=== PATIENT | male | born 1970 | race Caucasian/White ===

== ENCOUNTER 2018-03-06 05:06 | Emergency (ER) | payer BC ==
[2018-03-06 05:49] VITALS: PULSE 68; TEMP 97.3; BMI 24.9
--- NOTE | 2018-03-06 06:14 | PDOC ---
History of Present Illness - General History Source: Patient Exam Limitations: No Limitations - History of Present Illness Initial Comments: 03/06/18 06:38 The patient is a 47 year old male with a past medical history of GERD who presents to the ED s/p syncopal episode earlier today. The patient reports he was using the bathroom when he had a nose bleed. Patient states he became diaphoretic, nauseous, and lightheaded after seeing the blood. He states he had a glass of water and was walking back to his room when he had a sudden onset of generalized weakness and had a syncopal episode. He states he hit the back of his head against the wall when he had the syncopal episode. Patient also reports nasal congestion, rhinorrhea and a hoarse voice since Tuesday. Denies fever or chills. Denies chest pain or shortness of breath. Denies nausea , vomiting, or diarrhea. Denies any other symptoms. Family hx: Patients father from [place] in his 50s and brother from [place] in his 30s. <London Jung - Last Filed: 03/06/18 06:38> <Kathie Ryan - Last Filed: 03/06/18 07:03> - General Chief Complaint: Syncope/Near Syncope Stated Complaint: WEAKNESS/SYNCOPE Time Seen by Provider: 03/06/18 05:36 Past History <London Jung - Last Filed: 03/06/18 06:38> - Past Medical History COPD: No - Suicide/Smoking/Psychosocial Hx Smoking History: Never smoked Have you smoked in the past 12 months: No Information on smoking cessation initiated: No Hx Alcohol Use: No Drug/Substance Use Hx: No Substance Use Type: None <Kathie Ryan - Last Filed: 03/06/18 07:03> - Past Medical History Allergies/Adverse Reactions: Allergies Allergy/AdvReac Type Severity Reaction Status Date / Time No Known Allergies Allergy Verified 03/06/18 05:49 Home Medications: Ambulatory Orders Albuterol Sulfate Inhaler - [Ventolin HFA Inhaler -] 2 inh IH Q6H #1 inh Loratadine [Claritin] 10 mg PO DAILY #30 tablet 09/14/16 Review of Systems - Review of Systems Able to Perform ROS?: Yes Comments:: 03/06/18 06:38 CONSTITUTIONAL: + generalized weakness, diaphoresis Absent: fever, chills, malaise, loss of appetite HEENT: + nasal congestion, nosebleed, hoarse voice Absent: rhinorrhea, throat pain, throat swelling, difficulty swallowing, mouth swelling, ear pain, eye pain, visual Changes CARDIOVASCULAR: + syncope Absent: chest pain, palpitations, irregular heart rate, lightheadedness, peripheral edema RESPIRATORY: Absent: cough, shortness of breath, dyspnea with exertion, orthopnea, wheezing, stridor, hemoptysis GASTROINTESTINAL: + nausea Absent: abdominal pain, abdominal distension, vomiting, diarrhea, constipation, melena, hematochezia GENITOURINARY: Absent: dysuria, frequency, urgency, hesitancy, hematuria, flank pain, genital pain MUSCULOSKELETAL: Absent: myalgia, arthralgia, joint swelling SKIN: Absent: rash, itching, pallor HEMATOLOGIC/IMMUNOLOGIC: Absent: easy bleeding, easy bruising, lymphadenopathy, frequent infections ENDOCRINE: Absent: unexplained weight gain, unexplained weight loss, heat intolerance, cold intolerance NEUROLOGIC: + lightheadedness Absent: headache, focal weakness or paresthesias, unsteady gait, seizure, mental status changes, bladder or bowel incontinence PSYCHIATRIC: Absent: anxiety, depression, suicidal or homicidal ideation, hallucinations. All Other Systems: Reviewed and Negative <London Jung - Last Filed: 03/06/18 06:38> *Physical Exam - Vital Signs Last Vital Signs Temp Pulse Resp BP Pulse Ox 97.3 F L 68 18 113/62 99 03/06/18 05:45 03/06/18 05:45 03/06/18 05:45 03/06/18 05:45 03/06/18 05:45 - Physical Exam Comments: 03/06/18 06:38 GENERAL: Well developed, well nourished. Awake and alert. No acute distress. HEENT: Normocephalic, atraumatic. PERRLA, EOMI. No conjunctival pallor. Sclera are non- icteric. Moist mucous membranes. Oropharynx is clear. NECK: Supple. Full ROM. No JVD. Carotid pulses 2+ and symmetric, without bruits. No thyromegaly. No lymphadenopathy. CARDIOVASCULAR: Regular rate and rhythm. No murmurs, rubs, or gallops. Distal pulses are 2+ and symmetric. PULMONARY: No evidence of respiratory distress. Lungs clear to auscultation bilaterally. No wheezing, rales or rhonchi. ABDOMINAL: Soft. Non-tender. Non-distended. No rebound or guarding. No organomegaly. Normoactive bowel sounds. MUSCULOSKELETAL Normal range of motion at all joints. No bony deformities or tenderness. No CVA tenderness. EXTREMITIES: No cyanosis. No clubbing. No edema. No calf tenderness. SKIN: Warm and dry. Normal capillary refill. No rashes. No jaundice. NEUROLOGICAL: Alert, awake, appropriate. Cranial nerves 2-12 intact. No deficits to light touch and temperature in face, upper extremities and lower extremities. No motor deficits in the in face, upper extremities and lower extremities. Normoreflexic in the upper and lower extremities. Normal speech. Toes are down- going bilaterally. Gait is normal without ataxia. PSYCHIATRIC: Cooperative. Good eye contact. Appropriate mood and affect. <London Jung - Last Filed: 03/06/18 06:38> - Vital Signs Last Vital Signs Temp Pulse Resp BP Pulse Ox 97.3 F L 68 18 113/62 99 03/06/18 05:45 03/06/18 05:45 03/06/18 05:45 03/06/18 05:45 03/06/18 05:45 <Kathie Ryan - Last Filed: 03/06/18 07:03> Heart Score/ECG Review #1 03/06/18 06:38 Vent rate 76 bpm PA interval 180 ms QRS duration 110 ms Normal sinus rhythm <London Jung - Last Filed: 03/06/18 06:38> ED Treatment Course - LABORATORY CBC & Chemistry Diagram: 03/06/18 06:45 03/06/18 06:45 <Kathie Ryan - Last Filed: 03/06/18 07:03> Medical Decision Making - Medical Decision Making 03/06/18 06:59 Pt had a syncopal episode at home. He states that he has not been feeling well ; he has had nasal sinus congestion. He states that he was feeling dizzy and that he blew is nose and saw blood and felt weak and diaphoretic (vasovagal) Pt then went and drank water. States that he then felt unwell told his daughter to call EMS and he had a syncopal episode and slumped in his hallway. EMS started NSS, and pt is improved. We will check labs, CT head cspine and sinuses. Pt is pale and we sent a stool for guaiac. He denies bloody or black stools; HE has a hx of GERD and gastritis and he lost 10 lbs in the past yr and half. Pt states that he feels fine at this time; only complaint is nausea. Entire workup is pending. He will be signed out to the AM doc. <Kathie Ryan - Last Filed: 03/06/18 07:03> *DC/Admit/Observation/Transfer - Attestations Scribe Attestion: 03/06/18 06:38 Documentation prepared by London Jung, acting as medical examiner for Kathie Ryan MD <London Jung - Last Filed: 03/06/18 06:38> <Kathie Ryan - Last Filed: 03/06/18 07:03> - Referrals Referrals: Daniel Holt [Primary Care Provider] - - Patient Instructions - Post Discharge Activity
[2018-03-06] MEDS ORDERED: SODIUM CHLORIDE 0.9% 500 ML INFUS.BAG IV ONE (06:15)
[2018-03-06] MEDS ORDERED: ONDANSETRON 4 MG/2 ML VIAL IVPB ONE (06:28)
[2018-03-06 06:55] LABS: BASO % 0.1 % (0-2.0); EOS % 0.6 % (0-4.5); HEMATOCRIT 39.7 % (35.4-49); HEMOGLOBIN 13.8 GM/dL (11.7-16.9); LYMPH % 13.2 % (8-40); MCH 31.9 pg (25.7-33.7); MCHC 34.9 g/dl (32.0-35.9); MEAN CELL VOLUME 91.6 fl (80-96); MEAN PLT VOLUME 7.2 fl (7.5-11.1); MONO % 9.7 % (3.8-10.2); NEUT % 76.4 % (42.8-82.8); PLATELET COUNT 211 K/MM3 (134-434); RBC 4.33 M/mm3 (4.00-5.60); RDW 13.1 % (11.9-15.9); WHITE BLOOD COUNT 8.8 K/mm3 (4.0-10.0)
[2018-03-06 07:20] LABS: INR 0.99 (0.82-1.09); PROTHROMBIN TIME (PATIENT) 11.2 SEC (9.98-11.88)
[2018-03-06 07:25] LABS: ALBUMIN 3.7 g/dl (3.4-5.0); ANION GAP 9 (8-16); BILIRUBIN,TOTAL 0.4 mg/dL (0.2-1.0); BLOOD UREA NITROGEN 18 mg/dL (7-18); CALCIUM 8.1 mg/dL (8.5-10.1); CHLORIDE 107 mmol/L (98-107); CO2 25 mmol/L (21-32); CREATININE 0.7 mg/dL (0.7-1.3); GLUCOSE,RANDOM 109 mg/dL (74-106); POTASSIUM 3.8 mmol/L (3.5-5.1); SGOT/AST 17 U/L (15-37); SGPT/ALT 21 U/L (12-78); SODIUM 141 mmol/L (136-145)
[2018-03-06 07:28] LABS: ALK PHOS 66 U/L (45-117); TOT PROT 6.5 g/dl (6.4-8.2)
[2018-03-06] MEDS ORDERED: ONDANSETRON 4 MG/2 ML VIAL ONE (07:47)
[2018-03-06] MEDS ORDERED: ONDANSETRON 4 MG/2 ML VIAL IVPUSH ONE (07:48)
[2018-03-06 08:20] VITALS: BP 116/84
--- NOTE | 2018-03-06 08:23 | PDOC ---
*Physical Exam - Vital Signs Last Vital Signs Temp Pulse Resp BP Pulse Ox 97.3 F L 68 18 113/62 99 03/06/18 05:45 03/06/18 05:45 03/06/18 05:45 03/06/18 05:45 03/06/18 05:45 - Physical Exam Respiratory/Chest: positive: Lungs Clear Cardiovascular: positive: Regular Rhythm Gastrointestinal/Abdominal: negative: Tender ED Treatment Course - LABORATORY CBC & Chemistry Diagram: 03/06/18 06:45 03/06/18 06:45 - ADDITIONAL ORDERS Additional order review: Laboratory Results 03/06/18 03/06/18 03/06/18 06:45 06:45 06:45 PT with INR 11.20 INR 0.99 PTT (Actin FS) Sodium 141 Potassium 3.8 Chloride 107 Carbon Dioxide 25 Anion Gap 9 BUN 18 Creatinine 0.7 Creat Clearance w eGFR > 60 Random Glucose 109 H Calcium 8.1 L Total Bilirubin 0.4 AST 17 ALT 21 Alkaline Phosphatase 66 Creatine Kinase 79 Troponin I < 0.02 Total Protein 6.5 Albumin 3.7 Stool Occult Blood Blood Type O POSITIVE Antibody Screen Negative 03/06/18 03/06/18 06:45 06:30 PT with INR INR PTT (Actin FS) 31.1 Sodium Potassium Chloride Carbon Dioxide Anion Gap BUN Creatinine Creat Clearance w eGFR Random Glucose Calcium Total Bilirubin AST ALT Alkaline Phosphatase Creatine Kinase Troponin I Total Protein Albumin Stool Occult Blood Negative Blood Type Antibody Screen 03/06/18 06:45 RBC 4.33 MCV 91.6 MCHC 34.9 RDW 13.1 MPV 7.2 L Neutrophils % 76.4 Lymphocytes % 13.2 Monocytes % 9.7 Eosinophils % 0.6 Basophils % 0.1 - Medications Given in the ED: ED Medications Discontinued Medications Generic Name Dose Route Start Last Admin Trade Name Freq PRN Reason Stop Dose Admin Ondansetron HCl 4 mg 03/06/18 06:28 03/06/18 07:49 Zofran Injection IVPB 03/06/18 06:29 4 mg ONCE ONE Administration Sodium Chloride 1,000 ml 03/06/18 06:15 03/06/18 06:41 Normal Saline - IV 03/06/18 06:16 1,000 ml ONCE ONE Administration Medical Decision Making - Medical Decision Making 03/06/18 08:20 47 years old no significant past medical history presents to the ED with syncopal episodes in the context of recent GI illness. Patient with nausea feels like he may have eaten something which was bad. Nonischemic EKG troponin negative labs otherwise within normal limits Status post IV fluids and Zofran patient feels much better now with stable vital signs ambulate comfortably around the emergency department no longer lightheaded. We'll discharge with prescription for Zofran patient will follow- up with his primary care provider this week he'll return to the emergency department for any severe worsening symptoms or any concerns Findings, need for follow-up, strict return instructions discussed with patient. *DC/Admit/Observation/Transfer Diagnosis at time of Disposition: Syncope Qualifiers: Syncope type: vasovagal syncope Qualified Code(s): R55 - Syncope and collapse - Discharge Dispostion Admit: No - Referrals Referrals: Daniel Holt [Primary Care Provider] - - Patient Instructions Printed Discharge Instructions: DI for Syncope in Adults (Fainting) Additional Instructions: Zofran as prescribed. Drink plenty of fluids. Rest. Return to ED for any chest pain recurrence of syncope or for any concerns. Follow-up with your primary care provider in 1-2 days this week. - Post Discharge Activity Forms/Work/School Notes: Back to Work
--- NOTE | 2018-03-06 23:49 | EKG ---
Test Reason : Blood Pressure : / mmHG Vent. Rate : 076 BPM Atrial Rate : 076 BPM P-R Int : 180 ms QRS Dur : 110 ms QT Int : 400 ms P-R-T Axes : 063 060 036 degrees QTc Int : 450 ms NORMAL SINUS RHYTHM NORMAL ECG NO PREVIOUS ECGS AVAILABLE Confirmed by NAVNEET YORK MD ([id number]) on 03/06/2018 11:48:47 PM Referred By: Confirmed By:NAVNEET YORK MD
== END 2018-03-06 08:33 | disposition home or self-care (01) ==
LOC: JER 05:06
PROC: 3E033GC Introduction of Other Therapeutic Substance into Peripheral Vein, Percutaneous Approach (ICD-10-PCS; principal; 2018-03-06)
DX: R55 Syncope and collapse (principal)
CPT/HCPCS: 36415; 70450-TC; 70486-TC; 71045-TC-FY; 72125-TC; 80053; 82272; 82550; 84484; 85025; 85610; 85730; 86850; 86900; 86901; 93005; 93010; 99284-25